=== PATIENT | male | born 1935 | race Caucasian/White ===

== ENCOUNTER 2021-09-05 10:29 | Outpatient (CLI) | payer MEDICARE, BC | END 2021-09-05 10:30 | disposition home or self-care (01) | LOC: CSHCT 10:29 | PROVIDERS: ATTEND Family Medicine | DX: R74.8 Abnormal levels of other serum enzymes (principal); R10.13 Epigastric pain; K59.00 Constipation, unspecified; K44.9 Diaphragmatic hernia without obstruction or gangrene | CPT/HCPCS: 74177 ==